=== PATIENT | female | born 1990 | race Caucasian/White ===

== ENCOUNTER 2017-03-18 02:17 | Emergency (ER) | payer OTHER ==
--- NOTE | 2017-03-18 07:02 | DIAGNOSTIC IMAGING REPORT ---
PROCEDURE: US ABDOMEN ULTRASOUND-LIMITED INDICATION: RUQ PAIN TECHNIQUE: James scale and color Doppler sonographic images were obtained of the right upper quadrant. COMPARISON: None. FINDINGS: The liver is normal in size, contour, and echotexture. No mass or significant biliary dilatation. The gallbladder is surgically absent. The extrahepatic common duct measures 8.1 mm. There is slight intraluminal irregularity of the posterior wall and focal 3.2 mm nonobstructing, echogenic, nonshadowing focus is noted. No adjacent fluid collection. The pancreas is normal. No ductal dilatation. The visible portion of the inferior vena cava, abdominal aorta, and portal vein appear normal with appropriate direction of flow in the portal vein. The right kidney is normal measuring 11.9 cm. No free fluid in the right upper quadrant. IMPRESSION: 1. Intraluminal irregularity in the common duct including a focal, nonobstructing 3.2 mm lesion. While this may be wall irregularity, hyperdense bile/sludge, a discrete calculus is also be considered. 2. Post cholecystectomy without significant intra or extrahepatic biliary dilatation. 3. Findings discussed with Dr. Tsai in the emergency room.
--- NOTE | 2017-03-18 09:13 | ED ORDER SUMMARY ---
..... Patient: SIDNEY CHOWDHURY OrderSheet [facility] VisitID: [id number] [address]olynn Hand [place], [place] [id number] 27y, F Registration Date/Time: 03/18/2017 ORDER SHEET Weight: 72.5 kg (stated) Allergies: Erythromycin GENERAL ORDERS: CBC w Diff Urgent (02:47 03/18/2017 Ryan Moulton) (Ack 2:55 Simi) (5:41 HSoule) CMP Urgent (02:47 03/18/2017 Ryan Moulton) (Ack 2:55 Simi) (5:41 HSoule) UA-Culture if indicated Urgent (02:47 03/18/2017 Ryan Moulton) (Ack 2:55 Simi) (11:41 OHernandez) Amylase Urgent (02:47 03/18/2017 Ryan Moulton) (Ack 2:55 Simi) (5:41 HSoule) Lipase Urgent (02:47 03/18/2017 Ryan Moulton) (Ack 2:55 Simi) (5:41 HSoule) Urine Urgent (02:47 03/18/2017 Ryan Moulton) (Ack 2:55 RKopal) (Cancelled: Duplicate Order11:05 NHouse ER Tech1) US Abdomen Limited (Yes) (Cholecystectomy 3 mos ago, 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) Urgent (03:36 03/18/2017 Ryan Moulton) (Ack 4:07 RKopal) (5:27 RFay) Serum Qualitative Urgent (08:31 03/18/2017 Ryan Moulton) (8:37 NHouse ER Tech1) MEDICATION ORDERS: Phenergan IV 25 mg (HIGH ALERT MEDICATION, NOW) (04:03 03/18/2017 HSoule verbal order read back to Ryan Moulton) (Ack 4:04 HSoule) (4:31 HSoule) IV FLUIDS: IV NS : initial bolus none -, then 1000 mL/hr for X1 (NOW) (02:46 03/18/2017 Ryan Moulton) (Ack 2:49 HSoule) (3:13 HSoule) Zofran IV 4 mg (NOW) (02:47 03/18/2017 Ryan Moulton) (Ack 2:49 HSoule) (3:13 HSoule) Dilaudid IV 1 mg (HIGH ALERT MEDICATION, NOW) (03:35 03/18/2017 Ryan Moulton) (3:47 HSoule) Dilaudid IV 1 mg (HIGH ALERT MEDICATION, NOW) (05:38 03/18/2017 Ryan Moulton) (Ack 5:41 HSoule) (5:47 HSoule) Famotidine IV 20 mg/50mL (NOW) (06:20 03/18/2017 HSoule verbal order read back to Ryan Moulton) (6:21 HSoule) IV NS : initial bolus none -, then 1000 mL/hr for X1 (NOW) (08:41 03/18/2017 Ryan Moulton) (Ack 8:48 SRemike R.N.) (8:53 SRemike R.N.) Toradol IV 30 mg (NOW) (08:41 03/18/2017 Ryan Moulton) (Ack 8:48 SRemike R.N.) (8:54 SReitz R.N.) Zosyn IV 3.375 gm/50mL (NOW) (09:14 03/18/2017 Ryan Moulton) (Ack 9:17 SReitz R.N.) (9:35 SReitz R.N.) Dilaudid IV 1 mg (q 3 hours PRN pain > 5) (09:19 03/18/2017 Ryan Moulton) (Ack 9:19 SReitz R.N.) (10:16 SReitz R.N.) ORDER SHEET NOTES: [Electronically signed by Tenisha Hernandez R.N. (12:04 03/18/2017)] [Electronically signed by Supa Tsai Dr. (20:47 03/18/2017)] [Electronically locked/signed by Tenisha Hernandez R.N. (12:04 03/18/2017)]
--- NOTE | 2017-03-18 09:13 | ED NURSING NOTES ---
Clinical Report - Nurses [facility] [place] [address] 03/18/2017 2:19 Patient: SIDNEY CHOWDHURY TRIAGE Triage time 02:49 Luis Eduardo 2016. Acuity: LEVEL 2. Chief Complaint: ABDOMINAL PAIN. SEPSIS SCREEN: Sepsis Screen: negative. Negative (no infection suspected/documented). KALEB COMA SCORE: [place] Coma Scale: 15- eyes open spontaneously (4); best verbal response- oriented x 4 (5); best motor response- obeys commands (6). --02:54 Rachael Walton 02:49 03/18/17. BP: 110/95. HR: 103. RR: 18. O2 saturation: 98%. Temp: 98.5 F (oral). Pain level now: 8/10. --02:54 Rachael Walton. Weight: 72.5 kg stated. Height/Length: 68 inches Per Patient. BMI: 24.3. --02:51 Rachael Walton. Medications Synthroid Oral. --02:52 Rachael Walton. Medication/allergy information source: the patient. --02:54 Rachael Walton. Allergies Erythromycin. --02:52 Rachael Walton. History Arrived by private vehicle. Historian: patient. Accompanied by family. [place] This started today. ( Patient reports she had her gallbladder removed in July. In December she had a stone form in the duct. She states she had a surgery in December to allow the duct to drain. She had in infection in her bile duct. She reports pain started today and has progressively gotten worse.). PAST MEDICAL HX: Immunizations: up-to-date. Uses an intrauterine device. SOCIAL HX: Never smoker. Occasional alcohol use. No drug use. No infectious disease exposure. ABUSE ASSESSMENT: No report of abuse. FALL RISK ASSESSMENT: Fall risk assessment completed. No fall risk identified. NUTRITIONAL RISK ASSESSMENT: The nutritional risk assessment revealed no deficiencies. FUNCTIONAL ASSESSMENT: Functional assessment: no impairments noted. LEARNING NEEDS ASSESSMENT: The learning needs assessment revealed no barriers. SKIN INTEGRITY ASSESSMENT: Skin integrity risk assessment completed. No skin integrity risk identified. --02:54 Rachael Walton. PROBLEMS: Gallbladder Disease. --02:52 Rachael Walton. ADDITIONAL SURGERIES: Bile duct . Cholecystectomy. Tonsillectomy. --02:53 Rachael Walton. Interventions ID band on patient. To treatment room. --02:54 Rachael Walton. PHYSICAL ASSESSMENT 02:54 03/18/17. Patient gowned. GENERAL / NEURO / PSYCH: Alert. Oriented X 4. Appears in pain. HEENT: No facial asymmetry noted. Mucous membranes are pink. RESPIRATORY: Respirations not labored. CVS: Cardiac rhythm: sinus tachycardia; (105). GI / : Abdomen soft and nontender. Abdominal tenderness in the right upper quadrant. SKIN: Skin is warm and dry. --02:54 Rachael Walton. NURSING PROGRESS NOTES Pulse oximeter and NIBP monitor placed on patient; monitor alarms on. Patient gowned. Reassurance given to the patient. Two patient identifiers checked. Call light placed in reach. Side rails up x 1. Bed placed in lowest position. Brakes of bed on. Patient ready for evaluation- chart flagged and ED physician notified. --02:55 Rachael Walton 03:03/18/2017 Site #1 started via IV in the left antecubital space with an 20g angiocath, with aseptic technique and good blood return; one attempt. Blood drawn: rainbow set. Labeled in the presence of the patient and sent to the lab. Saline lock flushed with 10 mL saline. --03:13 Rachael Walton 03:03/18/2017 Zofran (Ondansetron HCl) IVP 4 mg given over 1 minute(s) via site #1. Allergies verified and confirmed 5 rights. IV patency established. IV site checked: no pain, redness, or swelling. IV flushed thoroughly pre- and post-medication administration. IVP given by RN. --03:13 Rachael Walton 03:03/18/2017 Started bag #1 1000 mL IV Fluids IV NS (Saline); at 1000 mL/hr over 1 hour(s) via site #1. Allergies verified and confirmed 5 rights. IV patency established. IV site checked: no pain, redness, or swelling. IV flushed thoroughly pre- and post-medication administration. --03:13 Rachael Walton 03:13 03/18/2017 Dilaudid (HYDROmorphone HCl PF) IVP 1 mg given over 1 minute(s) via site #1. Allergies verified, confirmed 5 rights and sedative warning given to the patient. IV patency established. IV site checked: no pain, redness, or swelling. IV flushed thoroughly pre- and post-medication administration. IVP given by RN. --03:47 Rachael Walton 03:34 03/18/17. --04:34 Rachael Walton 04:03 03/18/2017 IV Fluids IV NS Discontinued: bag #1 completed. Total amount infused: 1000 mL. IV patency established. IV site checked: no pain, redness, or swelling. IV flushed thoroughly. --04:03 Rachael Walton 04:16 03/18/2017 PHENERGAN (Promethazine HCl) IVP 25 mg given diluted in NS 100mL over 10 minute(s) via site #1. Allergies verified and confirmed 5 rights. IV patency established. IV site checked: no pain, redness, or swelling. IV flushed thoroughly pre- and post-medication administration. IVP given by RN. --04:31 Rachael Walton 03:33 03/18/17. BP: 121/75. HR: 80. RR: 20. O2 saturation: 99% on room air. Pain level now: 04/23. --04:34 Rachael Walton 04:34 03/18/17. BP: 113/67. HR: 89. RR: 18. O2 saturation: 100%. Pain level now: 02/21. --04:35 Rachael Walton Reassessment after medication administered. She is resting quietly. Overall patient status- she states feels better. --04:35 Rachael Walton ( Ultrasound paged to assess patient. Patient had one episode of emesis while in ED, about 500 ml out. Provider aware). --04:35 Rachael Walton ( Ultrasound at bedside). --04:58 Rachael Walton 05:27 03/18/17. BP: 111/67. HR: 80. RR: 20. O2 saturation: 99% on room air. Pain level now: 03/24. --05:27 Anton Rachael 05:47 03/18/2017 Dilaudid (HYDROmorphone HCl PF) IVP 1 mg given over 1 minute(s) via site #1. Allergies verified, confirmed 5 rights and sedative warning given to the patient. IV patency established. IV site checked: no pain, redness, or swelling. IV flushed thoroughly pre- and post-medication administration. IVP given by RN. --05:47 AntonRachael 06:21 03/18/2017 Famotidine IVP 20 mg given over 30 minute(s) via site #1. Allergies verified and confirmed 5 rights. IV patency established. IV site checked: no pain, redness, or swelling. IV flushed thoroughly pre- and post-medication administration. IVP given by RN. --06:21 Rachael Walton 06:21 03/18/17. BP: 102/69. HR: 90. RR: 20. O2 saturation: 99% on room air. Pain level now: 02/21. --06:24 Rachael Walton Care transferred and report received (from Rachael De La Torre RN). --06:57 Tenisha Hernandez R.NCan ( First contact with pt. c/o nausea. Provider notified.). --07:07 Tenisha Hernandez R.N. 07:06 03/18/17. BP: 113/68. HR: 115. RR: 16. O2 saturation: 99%. Pain level now 01/22. --07:07 Tenisha Hernandez R.N. 08:53 03/18/2017 Started bag #2 1000 mL IV Fluids IV NS (Saline); at 1000 mL/hr over 1 hour(s) via site #1 via IV pump. Allergies verified and confirmed 5 rights. IV patency established. IV site checked: no pain, redness, or swelling. IV flushed thoroughly pre- and post-medication administration. --08:53 Tenisha Hernandez R.N. 08:54 03/18/2017 Toradol IVP 30 mg given over 2 minute(s) via site #1. Allergies verified and confirmed 5 rights. IV patency established. IV site checked: no pain, redness, or swelling. IV flushed thoroughly pre- and post-medication administration. --08:54 Tenisha Hernandez R.N. 08:54 03/18/17. BP: 105/66. HR: 82. RR: 16. O2 saturation: 100%. --08:55 Tenisha Hernandez R.N. The patient is resting quietly. Patient identifiers not checked. --08:55 Tenisha Hernandez R.N. 09:35 03/18/2017 Started 3.375 gm of Zosyn (Piperacillin Sod-Tazobactam So) IVPB in bag #1 50 mL; at 100 mL/hr over 30 hour(s) via site #1 via IV pump. Allergies verified and confirmed 5 rights. IV patency established. IV site checked: no pain, redness, or swelling. IV flushed thoroughly pre- and post-medication administration. --09:35 Tenisha Hernandez R.N. 09:35 03/18/17. BP: 106/57. HR: 100. RR: 15. O2 saturation: 100%. --09:35 Tenisha Hernandez R.N. 10:00 03/18/2017 Zosyn IVPB Discontinued: infused. Total amount infused: 50 mL. IV patency established. IV site checked: no pain, redness, or swelling. IV flushed thoroughly. --10:00 Tenisha Hernandez R.N. 10:00 03/18/2017 IV Fluids IV NS Discontinued: bag #2 infused. Total amount infused: 1000 mL. IV patency established. IV site checked: no pain, redness, or swelling. IV flushed thoroughly. --10:00 Tenisha Hernandez R.N. 10:15 03/18/17. BP: 100/51. HR: 92. RR: 16. O2 saturation: 99%. --10:16 Tenisha Hernandez R.N. ( pt. requesting pain med. Provider notified orders received.). --10:16 Tenisha Hernandez R.N. 10:16 03/18/2017 Dilaudid (HYDROmorphone HCl PF) IVP 1 mg given over 2 minute(s) via site #1. Allergies verified, confirmed 5 rights and sedative warning given to the patient. IV patency established. IV site checked: no pain, redness, or swelling. IV flushed thoroughly pre- and post-medication administration. --10:16 Tenisha Hernandez R.N. 10:30 03/18/2017 Dilaudid IVP Response: no adverse reaction pain is gone now. The patient feels better. --11:08 Tenisha Hernandez R.N. Intake & Output Emesis output: 500 mL; return noted as brown. --03:18 Brooke Rausch. DISPOSITION / DISCHARGE 12:01 03/18/17. BP: 100/57. HR: 99. RR: 16. O2 saturation: 100%. Temp: 98.7 F. Pain level now 12/22. --12:02 Tenisha Hernandez R.N. Departure time: 12:02. Transferred to [facility]. Report was given to a nurse via a phone call. Report included patient's care, treatment, medications, reviewed medication reconcilliation, and condition (including any recent changes or anticipated changes). All questions were answered. Patient's personal items; items were placed in belongings bag, given to the patient and transported with the patient. Medication list reviewed and validated. --12:04 Tenisha Hernandez R.N. Locked/Released at 03/18/2017 12:04 by Tenisha Hernandez R.N.
--- NOTE | 2017-03-18 09:13 | ED ORDER SUMMARY ---
..... Patient: SIDNEY CHOWDHURY OrderSheet [facility] VisitID: [id number] Jolynn Hand [place], [place] [id number] 27y, F Registration Date/Time: 03/18/2017 ORDER SHEET Weight: 72.5 kg (stated) Allergies: Erythromycin GENERAL ORDERS: CBC w Diff Urgent (02:47 03/18/2017 Ryan Moulton) (Ack 2:55 Simi) (5:41 HSoule) CMP Urgent (02:47 03/18/2017 Ryan Moulton) (Ack 2:55 Simi) (5:41 HSoule) UA-Culture if indicated Urgent (02:47 03/18/2017 Ryan Moulton) (Ack 2:55 Simi) (11:41 OHernandez) Amylase Urgent (02:47 03/18/2017 Ryan Moulton) (Ack 2:55 Simi) (5:41 HSoule) Lipase Urgent (02:47 03/18/2017 Ryan Moulton) (Ack 2:55 Simi) (5:41 HSoule) Urine Urgent (02:47 03/18/2017 Ryan Moulton) (Ack 2:55 RKopal) (Cancelled: Duplicate Order11:05 NHouse ER Tech1) US Abdomen Limited (Yes) (Cholecystectomy 3 mos ago, 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) Urgent (03:36 03/18/2017 Ryan Moulton) (Ack 4:07 RKopal) (5:27 RFay) Serum Qualitative Urgent (08:31 03/18/2017 Ryan Moulton) (8:37 NHouse ER Tech1) MEDICATION ORDERS: Phenergan IV 25 mg (HIGH ALERT MEDICATION, NOW) (04:03 03/18/2017 HSoule verbal order read back to Ryan Moulton) (Ack 4:04 HSoule) (4:31 HSoule) IV FLUIDS: IV NS : initial bolus none -, then 1000 mL/hr for X1 (NOW) (02:46 03/18/2017 Ryan Moulton) (Ack 2:49 HSoule) (3:13 HSoule) Zofran IV 4 mg (NOW) (02:47 03/18/2017 Ryan Moulton) (Ack 2:49 HSoule) (3:13 HSoule) Dilaudid IV 1 mg (HIGH ALERT MEDICATION, NOW) (03:35 03/18/2017 Ryan Moulton) (3:47 HSoule) Dilaudid IV 1 mg (HIGH ALERT MEDICATION, NOW) (05:38 03/18/2017 Ryan Moulton) (Ack 5:41 HSoule) (5:47 HSoule) Famotidine IV 20 mg/50mL (NOW) (06:20 03/18/2017 HSoule verbal order read back to Ryan Moulton) (6:21 HSoule) IV NS : initial bolus none -, then 1000 mL/hr for X1 (NOW) (08:41 03/18/2017 Ryan Moulton) (Ack 8:48 SRemike R.N.) (8:53 SRemike R.N.) Toradol IV 30 mg (NOW) (08:41 03/18/2017 Ryan Moulton) (Ack 8:48 SRemike R.N.) (8:54 SReitz R.N.) Zosyn IV 3.375 gm/50mL (NOW) (09:14 03/18/2017 Ryan Moulton) (Ack 9:17 SReitz R.N.) (9:35 SReitz R.N.) Dilaudid IV 1 mg (q 3 hours PRN pain > 5) (09:19 03/18/2017 Ryan Moulton) (Ack 9:19 SReitz R.N.) (10:16 SReitz R.N.) ORDER SHEET NOTES: [Electronically signed by Tenisha Hernandez R.N. (12:04 03/18/2017)] [Electronically signed by Supa Tsai Dr. (20:47 03/18/2017)] [Electronically locked/signed by Tenisha Hernandez R.N. (12:04 03/18/2017)]
--- NOTE | 2017-03-18 09:13 | ED CLINICAL REPORT ---
Clinical Report - Physicians/Mid Levels [facility] [address] [place] [address] 03/18/2017 2:19 Patient: SIDNEY CHOWDHURY Time Seen: 02:43; initial patient contact. Arrived- By private vehicle. Historian- patient. HISTORY OF PRESENT ILLNESS Chief Complaint: ABDOMINAL PAIN. At its maximum, severity described as moderate. When seen in the E.D., severity described as moderate. Modifying factors. Not worsened by anything. Not relieved by anything. This started yesterday and is still present. It was gradual in onset and has been constant. It is described as "pain" and well localized. No radiation. It is described as located in the right upper quadrant. The patient has had nausea, loss of appetite and vomiting. No diarrhea. Similar symptoms previously: None. Recent medical care: Not recently seen/assessed. REVIEW OF SYSTEMS No constipation, pain with urination or fever. She has had chills. All systems otherwise negative, except as recorded above. PAST HISTORY Gallbladder Disease. SURGERIES: Bile duct . Cholecystectomy. Tonsillectomy. SOCIAL HISTORY Never smoker. Occasional alcohol use. No drug use. ADDITIONAL NOTES The nursing notes have been reviewed. PHYSICAL EXAM Vital Signs: 03/18/2017 02:49 BP: 110/95. HR: 103. RR: 18. O2 saturation: 98%. Temp: 98.5 F. Pain level now: 8/10. Have been reviewed. Hypertensive. Tachycardic. Respiratory rate normal. Temperature normal. Oxygen saturation normal. Appearance: Alert. Oriented X3. Appears to be in pain. Eyes: Eyes normal inspection. No scleral icterus. ENT: Dry mucous membranes present. CVS: Tachycardia. Heart sounds normal. Rhythm normal. Respiratory: No respiratory distress. Breath sounds normal. Abdomen: Soft. Moderate tenderness in the right upper quadrant with guarding present. No rebound tenderness or Mace's sign present. Bowel sounds normal. No organomegaly. No mass. Back: Normal inspection. No CVA tenderness. Skin: Skin warm and dry. Normal skin color. No rash. Extremities: No lower extremity edema. Neuro: Oriented X 3. LABS, X-RAYS, AND EKG Abdominal Sonogram: (1. Intraluminal irregularity in the common duct including a focal, nonobstructing 3.2 mm lesion. While this may be wall irregularity, hyperdense bile/sludge, a discrete calculus is also be considered. 2. Post cholecystectomy without significant intra or extrahepatic biliary dilatation. 8.1 mm). Study included the gallbladder. Prior studies were not available for comparison. Interpretation time: 07:30. Laboratory Tests: CBC w Diff: (BAYLEE: 03/18/2017 03:00) ( MsgRcvd 03/18/2017 03:16) Final results Test Result Flag Units (Reference) WHITE BLOOD COUNT 15.9 H K/uL (4.5-11.5) RED BLOOD COUNT 4.35 M/uL (4.00-5.20) HEMOGLOBIN 14.5 gm/dL (12.0-16.0) HEMATOCRIT 42.9 % (36.0-46.0) MEAN CELL VOLUME 99 fL (80-100) MEAN CORPUSCULAR HGB 33 pg (26-34) MEAN CORPUSCULAR HGB CONC 34 g/dL (31-37) RED CELL DISTRIBUTION WIDTH 13.6 % (11.6-14.8) PLATELET COUNT 352 K/uL (150-400) NEUTROPHIL % 83.7 H % (50-75) LYMPH % 9.3 L % (25-40) MONO % 5.6 % (3-14) EOSINOPHIL % 1.0 % (0-4) BASOPHIL % 0.4 % (0-2) CMP: (BAYLEE: 03/18/2017 03:00) ( MsgRcvd 03/18/2017 03:22) Final results Test Result Flag Units (Reference) GLUCOSE 109 mg/dL (70-110) BUN 7 mg/dL (7-18) CREATININE 0.9 mg/dL (0.6-1.3) Estimated GFR >60 mL/min Estimated GFR- >60 mL/min Note: Persistent reduction over 3 months in eGFR<60 mL/min/1.73 m2 defines CKD. Patients with eGFR values>=60 mL/min/1.73 m2 may also have CKD if evidence ofpersistent proteinuria. Additional information may be foundat www.kidney.org. SODIUM 141 mmol/L (136-145) POTASSIUM 3.3 L mmol/L (3.5-5.1) CHLORIDE 103 mmol/L (98-107) CARBON DIOXIDE 30 mmol/L (21-32) CALCIUM 8.4 L mg/dL (8.5-10.1) TOTAL PROTEIN 7.5 g/dL (6.4-8.2) ALBUMIN 4.0 g/dL (3.3-5.0) BILIRUBIN, TOTAL 2.0 H mg/dL (0.0-1.0) ALKALINE PHOSPHATASE 89 U/L (46-116) AST (SGOT) 26 U/L (15-37) ALT (SGPT) 39 U/L (12-78) LIPASE 119 U/L (73-393) AMYLASE 46 U/L (25-115) . PROGRESS AND PROCEDURES Discussed case with on-call health care provider, (call returned 07:06 Dr. Salbador Bedoya, he defers as he does not do ERCP's.). Discussed case with health care provider (call returned 08:37 Dr. Montenegro GI at [facility], he does not perform ERCP's, but will contact his partners and call back.). Consult obtained from gastroenterology. Dr. Montenegro agreed she should be transferred for MRCP and possible ERCP. Spoke w/ Hospitalist Dr. Garcia and he accepted the pt. Disposition: Benefits, risks and alternatives to transfer explained to patient. Transferred to [facility]. CLINICAL IMPRESSION Acute right upper quadrant abdominal pain of undetermined cause. Moderate leukocytosis with bandemia. INSTRUCTIONS Follow-up: Screening today revealed the patient's blood pressure to be in the normal range. (Electronically signed by Supa Tsai Dr. 03/18/2017 20:47)
--- NOTE | 2017-03-18 20:47 | ED DISCHARGE INSTRUCTIONS ---
Patient: SIDNEY CHOWDHURY General Instructions [facility] VisitID: [id number] [address] [place] [address] 27y, F Registration Date/Time: 03/18/2017 Acute right upper quadrant abdominal pain of undetermined cause. Moderate leukocytosis with bandemia. INSTRUCTIONS Follow-up: Screening today revealed the patient's blood pressure to be in the normal range. (Electronically signed by Supa Tsai Dr. 03/18/2017 20:47)
--- NOTE | 2017-03-18 20:47 | ED MED RECONCILIATION SUMMARY ---
Patient: SIDNEY CHOWDHURY Medication Reconciliation Report [facility] VisitID: [id number] [address] [place] [address] 27y, F Registration Date/Time: 03/18/2017 Weight: 72.5 kg Height/Length: 68 in. BMI: 24.3 ALLERGIES: Erythromycin The patient's Home Medications are listed below: THE FOLLOWING MEDICATIONS NEED TO BE RECONCILED: Synthroid Oral The source(s) of the original Home Medication information: patient The following Medications were given to the patient in the Emergency Department: Zofran [IVP] IVP 4 mg, administered: 03/18/2017 3:13:00 AM IV NS IV Fluids bolus 0, then 1000 mL/hr, administered: 03/18/2017 3:13:00 AM Dilaudid [IVP] IVP 1 mg, administered: 03/18/2017 3:13:00 AM PHENERGAN [IVP] IVP 25 mg diluted in NS 100 mL, administered: 03/18/2017 4:16:00 AM Dilaudid [IVP] IVP 1 mg, administered: 03/18/2017 5:47:00 AM Famotidine [IVP] IVP 20 mg, administered: 03/18/2017 6:21:00 AM IV NS IV Fluids bolus 0, then 1000 mL/hr, administered: 03/18/2017 8:53:00 AM Toradol [IVP] IVP 30 mg, administered: 03/18/2017 8:54:00 AM Zosyn [IVPB] IVPB bolus 0, then 3.375 gm 100 mL/hr, administered: 03/18/2017 9:35:00 AM Dilaudid [IVP] IVP 1 mg, administered: 03/18/2017 10:16:00 AM The following Medications were prescribed to the patient: None.
--- NOTE | 2017-03-18 20:47 | ED DISCHARGE INSTRUCTIONS ---
Patient: SIDNEY CHOWDHURY General Instructions [facility] VisitID: [id number] [address] [place] [address] 27y, F Registration Date/Time: 03/18/2017 Acute right upper quadrant abdominal pain of undetermined cause. Moderate leukocytosis with bandemia. INSTRUCTIONS Follow-up: Screening today revealed the patient's blood pressure to be in the normal range. (Electronically signed by Supa Tsai Dr. 03/18/2017 20:47)
--- NOTE | 2017-03-18 20:47 | ED MAR SUMMARY ---
..... Medication Administration Record [facility] [address] [place] [address] Patient: SIDNEY CHOWDHURY Visit ID: [id number] 27y, F Weight: 72.5 kg Height/Length: 68 in BMI: 24.3 ALLERGIES: Erythromycin Start 03:13 03/18/2017 Rachael Walton,, Stop 04:03 03/18/2017 Rachael Walton, Medication Administered: IV NS (SALINE), Dose: IV Fluids over 1 hour(s), Rate: 1000 mL/hr, Dispensed: 1000 mL bag, Site: #1 left AC. Medication Ordered: IV NS : initial bolus none -, then 1000 mL/hr for X1 (NOW). Given 03:13 03/18/2017 Rachael Walton, Medication Administered: ZOFRAN [IVP] (ONDANSETRON HCL), Dose: 4 mg IVP over 1 minute(s), Site: #1 left AC. Medication Ordered: Zofran IV 4 mg (NOW). Given 03:13 03/18/2017 Rachael Walton, Medication Administered: DILAUDID [IVP] (HYDROMORPHONE HCL PF), Dose: 1 mg IVP over 1 minute(s), Site: #1 left AC. Medication Ordered: Dilaudid IV 1 mg (HIGH ALERT MEDICATION, NOW). Given 04:16 03/18/2017 Rachael Walton, Medication Administered: PHENERGAN [IVP] (PROMETHAZINE HCL), Dose: 25 mg IVP over 10 minute(s), In: NS 100 mL, Site: #1 left AC. Medication Ordered: Phenergan IV 25 mg (HIGH ALERT MEDICATION, NOW). Given 05:47 03/18/2017 Rachael Walton, Medication Administered: DILAUDID [IVP] (HYDROMORPHONE HCL PF), Dose: 1 mg IVP over 1 minute(s), Site: #1 left AC. Medication Ordered: Dilaudid IV 1 mg (HIGH ALERT MEDICATION, NOW). Given 06:21 03/18/2017 Rachael Walton, Medication Administered: FAMOTIDINE [IVP], Dose: 20 mg IVP over 30 minute(s), Site: #1 left AC. Medication Ordered: Famotidine IV 20 mg/50mL (NOW). Start 08:53 03/18/2017 Tenisha Hernandez R.N., Stop 10:00 03/18/2017 Tenisha Hernandez R.N. Medication Administered: IV NS (SALINE), Dose: IV Fluids over 1 hour(s), Rate: 1000 mL/hr, Dispensed: 1000 mL bag, Site: #1 left AC. Medication Ordered: IV NS : initial bolus none -, then 1000 mL/hr for X1 (NOW). Given 08:54 03/18/2017 Tenisha Hernandez R.N. Medication Administered: TORADOL [IVP], Dose: 30 mg IVP over 2 minute(s), Site: #1 left AC. Medication Ordered: Toradol IV 30 mg (NOW). Start 09:35 03/18/2017 Tenisha Hernandez R.N., Stop 10:00 03/18/2017 Tenisha Hernandez R.N. Medication Administered: ZOSYN [IVPB] (PIPERACILLIN SOD-TAZOBACTAM SO), Dose: 3.375 gm IVPB over 30 hour(s), Rate: 100 mL/hr, Dispensed: 50 mL bag, Site: #1 left AC. Medication Ordered: Zosyn IV 3.375 gm/50mL (NOW). Given 10:16 03/18/2017 Tenisha Hernandez R.N. Medication Administered: DILAUDID [IVP] (HYDROMORPHONE HCL PF), Dose: 1 mg IVP over 2 minute(s), Site: #1 left AC. Medication Ordered: Dilaudid IV 1 mg (q 3 hours PRN pain > 5).
--- NOTE | 2017-03-18 20:47 | ED MAR SUMMARY ---
..... Medication Administration Record [facility] [address] [place] [address] Patient: SIDNEY CHOWDHURY Visit ID: [id number] 27y, F Weight: 72.5 kg Height/Length: 68 in BMI: 24.3 ALLERGIES: Erythromycin Start 03:13 03/18/2017 Rachael Walton,, Stop 04:03 03/18/2017 Rachael Walton, Medication Administered: IV NS (SALINE), Dose: IV Fluids over 1 hour(s), Rate: 1000 mL/hr, Dispensed: 1000 mL bag, Site: #1 left AC. Medication Ordered: IV NS : initial bolus none -, then 1000 mL/hr for X1 (NOW). Given 03:13 03/18/2017 Rachael Walton, Medication Administered: ZOFRAN [IVP] (ONDANSETRON HCL), Dose: 4 mg IVP over 1 minute(s), Site: #1 left AC. Medication Ordered: Zofran IV 4 mg (NOW). Given 03:13 03/18/2017 Rachael Walton, Medication Administered: DILAUDID [IVP] (HYDROMORPHONE HCL PF), Dose: 1 mg IVP over 1 minute(s), Site: #1 left AC. Medication Ordered: Dilaudid IV 1 mg (HIGH ALERT MEDICATION, NOW). Given 04:16 03/18/2017 Rachael Walton, Medication Administered: PHENERGAN [IVP] (PROMETHAZINE HCL), Dose: 25 mg IVP over 10 minute(s), In: NS 100 mL, Site: #1 left AC. Medication Ordered: Phenergan IV 25 mg (HIGH ALERT MEDICATION, NOW). Given 05:47 03/18/2017 Rachael Walton, Medication Administered: DILAUDID [IVP] (HYDROMORPHONE HCL PF), Dose: 1 mg IVP over 1 minute(s), Site: #1 left AC. Medication Ordered: Dilaudid IV 1 mg (HIGH ALERT MEDICATION, NOW). Given 06:21 03/18/2017 Rachael Walton, Medication Administered: FAMOTIDINE [IVP], Dose: 20 mg IVP over 30 minute(s), Site: #1 left AC. Medication Ordered: Famotidine IV 20 mg/50mL (NOW). Start 08:53 03/18/2017 Tenisha Hernandez R.N., Stop 10:00 03/18/2017 Tenisha Hernandez R.N. Medication Administered: IV NS (SALINE), Dose: IV Fluids over 1 hour(s), Rate: 1000 mL/hr, Dispensed: 1000 mL bag, Site: #1 left AC. Medication Ordered: IV NS : initial bolus none -, then 1000 mL/hr for X1 (NOW). Given 08:54 03/18/2017 Tenisha Hernandez R.N. Medication Administered: TORADOL [IVP], Dose: 30 mg IVP over 2 minute(s), Site: #1 left AC. Medication Ordered: Toradol IV 30 mg (NOW). Start 09:35 03/18/2017 Tenisha Hernandez R.N., Stop 10:00 03/18/2017 Tenisha Hernandez R.N. Medication Administered: ZOSYN [IVPB] (PIPERACILLIN SOD-TAZOBACTAM SO), Dose: 3.375 gm IVPB over 30 hour(s), Rate: 100 mL/hr, Dispensed: 50 mL bag, Site: #1 left AC. Medication Ordered: Zosyn IV 3.375 gm/50mL (NOW). Given 10:16 03/18/2017 Tenisha Hernandez R.N. Medication Administered: DILAUDID [IVP] (HYDROMORPHONE HCL PF), Dose: 1 mg IVP over 2 minute(s), Site: #1 left AC. Medication Ordered: Dilaudid IV 1 mg (q 3 hours PRN pain > 5).
--- NOTE | 2017-03-18 20:47 | ED MED RECONCILIATION SUMMARY ---
Patient: SIDNEY CHOWDHURY Medication Reconciliation Report VisitID: [id number] [address] [place] [address] 27y, F Registration Date/Time: 03/18/2017 Weight: 72.5 kg Height/Length: 68 in. BMI: 24.3 ALLERGIES: Erythromycin The patient's Home Medications are listed below: THE FOLLOWING MEDICATIONS NEED TO BE RECONCILED: Synthroid Oral The source(s) of the original Home Medication information: patient The following Medications were given to the patient in the Emergency Department: Zofran [IVP] IVP 4 mg, administered: 03/18/2017 3:13:00 AM IV NS IV Fluids bolus 0, then 1000 mL/hr, administered: 03/18/2017 3:13:00 AM Dilaudid [IVP] IVP 1 mg, administered: 03/18/2017 3:13:00 AM PHENERGAN [IVP] IVP 25 mg diluted in NS 100 mL, administered: 03/18/2017 4:16:00 AM Dilaudid [IVP] IVP 1 mg, administered: 03/18/2017 5:47:00 AM Famotidine [IVP] IVP 20 mg, administered: 03/18/2017 6:21:00 AM IV NS IV Fluids bolus 0, then 1000 mL/hr, administered: 03/18/2017 8:53:00 AM Toradol [IVP] IVP 30 mg, administered: 03/18/2017 8:54:00 AM Zosyn [IVPB] IVPB bolus 0, then 3.375 gm 100 mL/hr, administered: 03/18/2017 9:35:00 AM Dilaudid [IVP] IVP 1 mg, administered: 03/18/2017 10:16:00 AM The following Medications were prescribed to the patient: None.
== END 2017-03-18 12:14 | disposition short-term general hospital (02) ==
LOC: ED SRH 02:17
DX: D72.825 Bandemia (principal); R10.11 Right upper quadrant pain; Z79.899 Other long term (current) drug therapy; Z88.1 Allergy status to other antibiotic agents
CPT/HCPCS: 90004; 90100; 92235; 92530; 95059; 98428